=== PATIENT | female | born 1980 | race American Indian/Alaskan Native ===

== ENCOUNTER 2017-09-28 22:31 | Emergency (ER) | payer OTHER ==
[2017-09-28 23:09] VITALS: BP 132/64
[2017-09-28] MEDS ORDERED: TYLENOL ONE (23:14)
--- NOTE | 2017-09-29 00:48 | XRay Report ---
FINAL REPORT EXAM: XR FINGER(S) 2+V LT HISTORY: left middle finger swelling TECHNIQUE: Three views of the left middle finger were submitted. FINDINGS: There is an acute obliquely oriented nondisplaced fracture of the distal diaphysis and metaphysis of the middle phalanx. The fracture line does not extend to the articular surface. There are no additional fractures. There is soft tissue swelling adjacent to the fracture site. IMPRESSION: Acute nondisplaced obliquely oriented fracture of the distal end of the middle phalanx of the middle finger as described.
--- NOTE | 2017-09-29 02:57 | Emergency Department Report ---
Upper Extremity - HPI Chief Complaint: Extremity Injury, Upper Stated Complaint: PAIN IN LT 3RD DIGIT Time Seen by Provider: 09/29/17 01:41 Upper Extremity: Left Middle Finger (injury, swelling and pain.) Occurred When: Today Mechanism: Crush Severity: severe (pain is 10/10) Symptoms: Yes Pain with Movement (left middle finger), Yes Limited Range of Movement (left middle finger), Yes Swelling (left middle finger), No Deformity, No Numbness, No Weakness, No Bruising/Ecchymosis, No Laceration or Abrasion Other History: Patient here presented with injury to her left middle finger and report that she squashed her middle finger in the door. She reports pain and swelling to left middle finger and more painful with movement better rest. She did not take any medication for pain she came to the emergency room. Denies any radiation of pain and reports that pain is throbbing and it is 10/10. Pain is worse with movement better with rest ED Review of Systems ROS: Stated complaint: PAIN IN LT 3RD DIGIT Other details as noted in HPI Comment: All other systems reviewed and negative Constitutional: no symptoms reported Respiratory: no symptoms reported Cardiovascular: denies: chest pain, palpitations, edema, syncope Gastrointestinal: denies: abdominal pain, nausea, vomiting Musculoskeletal: joint swelling, arthralgia. denies: back pain, myalgia Skin: denies: rash Neurological: denies: headache, weakness, numbness, paresthesias, confusion, abnormal gait, vertigo ED Past Medical Hx - Past Medical History Previous Medical History?: Yes Hx Headaches / Migraines: Yes Additional medical history: heart murmur - Surgical History Past Surgical History?: Yes Additional Surgical History: . tubal ligation - Family History Family history: no significant - Social History Smoking Status: Current Every Day Smoker Substance Use Type: Alcohol, Marijuana - Medications Home Medications: Home Medications Medication Instructions Recorded Confirmed Last Taken Type Sulfamethoxazole/Trimethoprim 1 each PO BID #14 tablet 12/17/15 Unknown Rx [Bactrim DS TAB] traMADol [Ultram 50 MG tab] 50 mg PO Q6HR PRN #15 tablet 12/17/15 Unknown Rx Ibuprofen [Motrin] 600 mg PO Q8H PRN 5 Days #15 tablet 09/29/17 Unknown Rx Upper Extremity Exam - Exam General: Vital signs noted. No distress. Alert and acting appropriately. This is a 29-year-old female well-nourished well-developed in no acute distress. Head and Torso: No HEENT Abnormality (normal exam), No Neck Tenderness (normal exam), No Chest/Lungs Abnormality (normal exam), No Abdominal Tenderness ( normal exam), No Back Tenderness (normal exam) Shoulder Exam: Yes Normal Range of Motion in Shoulder, No Shoulder Tenderness, No Clavicle Tenderness, No Shoulder Deformity, No AC Joint Tenderness Arm Exam: No Arm/Humerus Tenderness, No Arm Deformity Elbow: Yes Normal Range of Motion in Elbow, No Elbow Tenderness, No Elbow Deformity Forearm: No Forearm Tenderness, No Forearm Deformity, No Pain with Pronation, No Pain with Supination Wrist: Yes Wrist Tenderness, Yes Normal ROM in Wrist, No Wrist Deformity, No Snuffbox Tenderness, No Pain with Axial Thumb Compression Hand: Yes Digit Tenderness (left middle finger at mid phalanx), Yes Normal ROM in Digit(s) (left middle finger at mid phalanx), No Hand Tenderness, No Hand Deformity, No Digit(s) Deformity, No Tendon Dysfunction CMS Exam: Yes Broken Skin, Yes Normal Distal Pulses, Yes Normal Capillary Refill , Yes Normal Distal Sensation ED Course Vital Signs 09/28/17 23:03 Temperature 98.4 F Pulse Rate 71 Respiratory 16 Rate Blood Pressure 132/64 O2 Sat by Pulse 99 Oximetry Vital Signs 09/28/17 09/29/17 23:03 03:22 Temperature 98.4 F Pulse Rate 71 Respiratory 16 18 Rate Blood Pressure 132/64 O2 Sat by Pulse 99 Oximetry - Reevaluation(s) Reevaluation #1: 09/29/17 04:42 Patient given Belen 5/325 2 tablets in the emergency room for pain. Patient with nondisplaced fracture to the distal and of the middle phalanx of the middle finger. This was communicated to patient's .see procedure note for splint details - Orthopedic Splinting/Casting Injury #1 Side: left Upper Extremity Injury Location: finger Upper Extremity Immobilizer: aluminum form splint Additional Comments: Patient with good neurovascular check status post splint placement. ED Medical Decision Making - Radiology Data Radiology results: report reviewed X-ray of left middle finger reveal acute nondisplaced obliquely oriented fracture of the distal end of the middle phalanx of the middle finger. - Medical Decision Making ED course: Patient here report that she crushed her finger in the door 30 minutes prior to coming to the emergency room. Physical findings for painful, swelling in and tender to palpate to left middle finger at mid phalanx. Patient has pain with movement. No bony deformity noted but obvious soft tissue swelling. X-ray confirmed that patient has nondisplaced fracture to her left middle finger at mid phalanx. Discussed patient and I told her she will need to follow up with orthopedic doctor for further evaluation and treatment and that she will need to keep metal splint on until she is seen by orthopedic doctor. Patient was given Belen 5/325 mg 2 tablets in the emergency room which relieved her pain. Patient with good neurovascular checked after splint placement and a radial and ulnar pulses at 2+ and bounding. Patient stable discharged from the emergency room in stable condition with prescription for Motrin and instructions in Rice therapy. Critical care attestation.: If time is entered above; I have spent that time in minutes in the direct care of this critically ill patient, excluding procedure time. ED Disposition Clinical Impression: Pain of left middle finger Fracture of middle phalanx of middle finger Qualifiers: Encounter type: initial encounter Fracture type: closed Fracture alignment: nondisplaced Laterality: left Qualified Code(s): S62.653A - Nondisplaced fracture of middle phalanx of left middle finger, initial encounter for closed fracture Injury of left middle finger Qualifiers: Encounter type: initial encounter Qualified Code(s): S69.92XA - Unspecified injury of left wrist, hand and finger(s), initial encounter Disposition: - TO HOME OR SELFCARE Is pt being admited?: No Does the pt Need Aspirin: No Condition: Stable Instructions: Finger Fracture (ED), Arthralgia (ED), RICE Therapy (ED), Splint Care (ED) Additional Instructions: Please follow up with orthopedic doctor in 3-5 days for evaluation of nondisplaced fracture of your left middle finger. Keep splint on until seen by orthopedic doctor Take Motrin for pain as prescribed Prescriptions: Ibuprofen [Motrin] 600 mg PO Q8H PRN 5 Days #15 tablet PRN Reason: Pain Referrals: PRIMARY CARE, [Primary Care Provider] - 3-5 Days ERIN PAGE MD [Staff Physician] - 3-5 Days Forms: Accompanied Note, Work/School Release Form(ED)
[2017-09-29] MEDS ORDERED: NORCO 5/325 PO ONE (03:00)
== END 2017-09-29 04:30 | disposition home or self-care (01) ==
LOC: ED 22:31
DX: S62.623A Displaced fracture of middle phalanx of left middle finger, initial encounter for closed fracture (principal); F17.200 Nicotine dependence, unspecified, uncomplicated; F12.10 Cannabis abuse, uncomplicated; G43.909 Migraine, unspecified, not intractable, without status migrainosus; W23.0XXA Caught, crushed, jammed, or pinched between moving objects, initial encounter; Y93.89 Activity, other specified; Y92.89 Other specified places as the place of occurrence of the external cause; Y99.8 Other external cause status
CPT/HCPCS: 99283

== ENCOUNTER 2018-02-27 08:56 | Emergency (ER) | payer SELFPAY ==
[2018-02-27 09:02] VITALS: BP 141/82
[2018-02-27] MEDS ORDERED: ZOFRAN ODT PO ONE (09:45)
[2018-02-27] MEDS ORDERED: TORADOL IM ONE (09:45)
--- NOTE | 2018-02-27 09:45 | Emergency Department Report ---
ED Headache HPI - General Chief Complaint: Headache Stated Complaint: HEADACHE Time Seen by Provider: 02/27/18 09:39 - History of Present Illness Initial Comments: Patient is a 37-year-old female who is presenting with a global headache for the past one day. Patient has history migraine states this headache is consistent with her migraines. There is some mild nausea and photophobia. Patient says normally she takes [id number] meds. She took ibuprofen didn't help this time. Patient denies any head injury fevers chills vomiting abdominal pain or chest pain at this time. Recent Head Trauma: chronic headaches Associated Symptoms: nausea/vomiting. denies: confusion, fatigue, facial pain, fever/chills, flushing, loss of consciousness, nasal congestion, nasal drainage , numbness in legs/feet, rash, seizures, sinus infection, stiff neck, vision changes, weakness Allergies/Adverse Reactions: Allergies No Known Allergies Allergy (Verified 02/27/18 09:00) Home Medications: Ambulatory Orders Sulfamethoxazole/Trimethoprim [Bactrim DS TAB] 1 each PO BID #14 tablet traMADol [Ultram 50 MG tab] 50 mg PO Q6HR PRN #15 tablet 12/17/15 Butalb/Acetamin/Caff 50-325-40 [Fioricet] 1 tab PO Q6HR PRN #15 tab 02/27/18 Ibuprofen [Motrin 600 MG tab] 600 mg PO Q8H PRN 5 Days #30 tablet 02/27/18 ED Review of Systems ROS: Stated complaint: HEADACHE Other details as noted in HPI Comment: All other systems reviewed and negative ED Past Medical Hx - Past Medical History Hx Headaches / Migraines: Yes Additional medical history: heart murmur - Surgical History Additional Surgical History: . tubal ligation - Social History Smoking Status: Current Every Day Smoker Substance Use Type: Alcohol, Marijuana - Medications Home Medications: Home Medications Medication Instructions Recorded Confirmed Last Taken Type Sulfamethoxazole/Trimethoprim 1 each PO BID #14 tablet 12/17/15 Unknown Rx [Bactrim DS TAB] traMADol [Ultram 50 MG tab] 50 mg PO Q6HR PRN #15 tablet 12/17/15 Unknown Rx Butalb/Acetamin/Caff 50-325-40 1 tab PO Q6HR PRN #15 tab 02/27/18 Unknown Rx [Fioricet] Ibuprofen [Motrin 600 MG tab] 600 mg PO Q8H PRN 5 Days #30 tablet 02/27/18 Unknown Rx ED Physical Exam - General Limitations: No Limitations General appearance: alert, in no apparent distress - Head Head exam: Present: atraumatic, normocephalic - Eye Eye exam: Present: normal appearance - ENT ENT exam: Present: mucous membranes moist - Neck Neck exam: Present: normal inspection - Respiratory Respiratory exam: Present: normal lung sounds bilaterally. Absent: respiratory distress - Cardiovascular Cardiovascular Exam: Present: regular rate, normal rhythm. Absent: systolic murmur, diastolic murmur, rubs, gallop - GI/Abdominal GI/Abdominal exam: Present: soft, normal bowel sounds - Extremities Exam Extremities exam: Present: normal inspection - Back Exam Back exam: Present: normal inspection - Neurological Exam Neurological exam: Present: alert, oriented X3 - Psychiatric Psychiatric exam: Present: normal affect, normal mood - Skin Skin exam: Present: warm, dry, intact, normal color. Absent: rash ED Course Vital Signs 02/27/18 09:00 Temperature 98.9 F Pulse Rate 92 H Respiratory 18 Rate Blood Pressure 141/82 O2 Sat by Pulse 100 Oximetry ED Medical Decision Making - Medical Decision Making Patient was given a Zofran ODT and Toradol shot IM he'll be discharged home with Fioricet. Critical care attestation.: If time is entered above; I have spent that time in minutes in the direct care of this critically ill patient, excluding procedure time. ED Disposition Clinical Impression: Migraine Qualifiers: Migraine type: unspecified Status migrainosus presence: without status migrainosus Intractability: not intractable Qualified Code(s): G43.909 - Migraine, unspecified, not intractable, without status migrainosus Disposition: DC-01 TO HOME OR SELFCARE Is pt being admited?: No Does the pt Need Aspirin: No Condition: Stable Instructions: Migraine Headache (ED) Prescriptions: Butalb/Acetamin/Caff 50-325-40 [Fioricet] 1 tab PO Q6HR PRN #15 tab PRN Reason: Headache Ibuprofen [Motrin 600 MG tab] 600 mg PO Q8H PRN 5 Days #30 tablet PRN Reason: Pain Referrals: KASHMIR RUSH MD [Staff Physician] - 3-5 Days
== END 2018-02-27 09:57 | disposition home or self-care (01) ==
LOC: ED 08:56
DX: G43.909 Migraine, unspecified, not intractable, without status migrainosus (principal); F17.200 Nicotine dependence, unspecified, uncomplicated; F12.10 Cannabis abuse, uncomplicated
CPT/HCPCS: 96372; 99282; J1885; Q0162

== ENCOUNTER 2018-08-01 09:06 | Emergency (ER) | payer SELFPAY ==
[2018-08-01] MEDS ORDERED: XYLOCAINE 1% MPF 5 mL INFILTRATI ONE (10:08)
--- NOTE | 2018-08-01 10:09 | Emergency Department Report ---
Blank Doc - Documentation Documentation: Patient is a 38-year-old female who is unable to remove the piercing from her upper lip. Patient states she hit her lip several days ago and a small scab she is able to remove the jewelry but not the part of the piercing that is inserted into the scan. The patient denies any redness pus drainage or swelling. The patient be moved to a treatment room, use lidocaine and a scalpel to remove the foreign body from the skin
--- NOTE | 2018-08-01 10:52 | Emergency Department Report ---
- General Chief complaint: Skin/Abscess/Foreign Body Stated complaint: THERMAL IN LIP Time Seen by Provider: 08/01/18 09:58 Source: patient Mode of arrival: Ambulatory Limitations: No Limitations - History of Present Illness Initial comments: This is a 38-year-old female who presents with a piercing lodged in her upper lip. Patient states she hit her lip 2 weeks ago and able to remove one side of jewelry. 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 A small scab has formed over jewelry causing problem for removal. Patient reports pain with touch. The patient denies redness, pus, drainage or swelling. MD complaint: foreign body (upper lip) Onset/Timin -: week(s) Tetanus Up to Date: yes Severity: mild Severity scale (0 -10): 3 Quality: aching Consistency: intermittent Improves with: none Worsens with: palpation, movement Context: none Associated symptoms: denies other symptoms Treatments Prior to Arrival: none - Related Data Previous Rx's Medication Instructions Recorded Last Taken Type Sulfamethoxazole/Trimethoprim 1 each PO BID #14 tablet 12/17/15 Unknown Rx [Bactrim DS TAB] traMADol [Ultram 50 MG tab] 50 mg PO Q6HR PRN #15 tablet 12/17/15 Unknown Rx Butalb/Acetamin/Caff 50-325-40 1 tab PO Q6HR PRN #15 tab 02/27/18 Unknown Rx [Fioricet] Ibuprofen [Motrin 600 MG tab] 600 mg PO Q8H PRN 5 Days #30 tablet 02/27/18 Unknown Rx Neomycin/Bacitracin/Polymyxinb 14 gm TP BID 7 Days #1 oint...g. 08/01/18 Unknown Rx [Triple Antibiotic Ointment] Allergies Allergy/AdvReac Type Severity Reaction Status Date / Time No Known Allergies Allergy Verified 02/27/18 09:00 Abscess Boil HPI - HPI Chief Complaint: Skin/Abscess/Foreign Body Stated Complaint: THERMAL IN LIP Time Seen by Provider: 08/01/18 09:58 Home Medications: Previous Rx's Medication Instructions Recorded Last Taken Type Sulfamethoxazole/Trimethoprim 1 each PO BID #14 tablet 12/17/15 Unknown Rx [Bactrim DS TAB] traMADol [Ultram 50 MG tab] 50 mg PO Q6HR PRN #15 tablet 12/17/15 Unknown Rx Butalb/Acetamin/Caff 50-325-40 1 tab PO Q6HR PRN #15 tab 02/27/18 Unknown Rx [Fioricet] Ibuprofen [Motrin 600 MG tab] 600 mg PO Q8H PRN 5 Days #30 tablet 02/27/18 Unknown Rx Neomycin/Bacitracin/Polymyxinb 14 gm TP BID 7 Days #1 oint...g. 08/01/18 Unknown Rx [Triple Antibiotic Ointment] Allergies/Adverse Reactions: Allergies Allergy/AdvReac Type Severity Reaction Status Date / Time No Known Allergies Allergy Verified 02/27/18 09:00 ED Review of Systems ROS: Stated complaint: THERMAL IN LIP Other details as noted in HPI Constitutional: denies: chills, fever Respiratory: denies: cough, shortness of breath, wheezing Cardiovascular: denies: chest pain, palpitations Gastrointestinal: denies: abdominal pain, nausea, diarrhea Musculoskeletal: denies: back pain, joint swelling, arthralgia Skin: other (jewerly lodged in the upper lid). denies: rash, lesions Neurological: denies: headache, weakness, paresthesias Psychiatric: denies: anxiety, depression ED Past Medical Hx - Past Medical History Previous Medical History?: Yes Hx Headaches / Migraines: Yes Additional medical history: heart murmur - Surgical History Past Surgical History?: Yes Additional Surgical History: . tubal ligation - Social History Smoking Status: Current Every Day Smoker Substance Use Type: Alcohol, Marijuana - Medications Home Medications: Home Medications Medication Instructions Recorded Confirmed Last Taken Type Sulfamethoxazole/Trimethoprim 1 each PO BID #14 tablet 12/17/15 Unknown Rx [Bactrim DS TAB] traMADol [Ultram 50 MG tab] 50 mg PO Q6HR PRN #15 tablet 12/17/15 Unknown Rx Butalb/Acetamin/Caff 50-325-40 1 tab PO Q6HR PRN #15 tab 02/27/18 Unknown Rx [Fioricet] Ibuprofen [Motrin 600 MG tab] 600 mg PO Q8H PRN 5 Days #30 tablet 02/27/18 Unknown Rx Neomycin/Bacitracin/Polymyxinb 14 gm TP BID 7 Days #1 oint...g. 08/01/18 Unknown Rx [Triple Antibiotic Ointment] ED Physical Exam - General Limitations: No Limitations General appearance: alert, in no apparent distress - Respiratory Respiratory exam: Present: normal lung sounds bilaterally. Absent: respiratory distress - Cardiovascular Cardiovascular Exam: Present: regular rate, normal rhythm. Absent: systolic murmur, diastolic murmur, rubs, gallop - GI/Abdominal GI/Abdominal exam: Present: soft, normal bowel sounds - Neurological Exam Neurological exam: Present: alert, oriented X3 - Psychiatric Psychiatric exam: Present: normal affect, normal mood - Skin Skin exam: Present: warm, dry, intact, normal color, other (foreign object, piercing jewelry, launched in phitral ridge, scab, tenderness, no drainage). Absent: rash ED Course Vital Signs 08/01/18 08/01/18 09:14 11:12 Temperature 98.1 F 98.5 F Pulse Rate 75 68 Respiratory 16 18 Rate Blood Pressure 138/79 Blood Pressure 128/72 [Left] O2 Sat by Pulse 100 98 Oximetry - Foreign Body Removal Nose Location: nostril (R) Suspected Foreign Body: organic material Patient Preparation: topical anesthetic (1% lidocaine) Foreign Body Removal Technique: other (forceps) Patient Tolerated Procedure: well Complications: none ED Medical Decision Making - Medical Decision Making Patient was examined by me. Vitals are normal and patient is in no acute distress. Foreign object removed successfully with scapula and forceps. Start triple antibiotic ointment for prophylactic treatment. Plan discussed with patient to discharge home and treat outpatient. Patient discharged home in stable condition. Follow up with PCP in 2-3 days. Critical care attestation.: If time is entered above; I have spent that time in minutes in the direct care of this critically ill patient, excluding procedure time. ED Disposition Clinical Impression: Foreign body in lip Qualifiers: Encounter type: initial encounter Qualified Code(s): S00.551A - Superficial foreign body of lip, initial encounter Disposition: DC- TO HOME OR SELFCARE Is pt being admited?: No Does the pt Need Aspirin: No Condition: Stable Instructions: Soft Tissue Foreign Body (ED) Additional Instructions: Apply triple antibiotic ointment to wound twice a day for 7 days. Follow-up with primary care provider in 2-3 days wound is not healing is discussed. Prescriptions: Neomycin/Bacitracin/Polymyxinb [Triple Antibiotic Ointment] 14 gm TP BID 7 Days #1 oint...g. Referrals: [facility] [Outside] - 3-5 Days [facility] [Outside] - 3-5 Days [facility] [Outside] - 3-5 Days Forms: Work/School Release Form(ED) Time of Disposition: 11:03 Print Language: TURKMEN
[2018-08-01 11:17] VITALS: BP 128/72
== END 2018-08-01 11:12 | disposition home or self-care (01) ==
LOC: ED 09:06
DX: S00.551A Superficial foreign body of lip, initial encounter (principal); G43.909 Migraine, unspecified, not intractable, without status migrainosus; F17.200 Nicotine dependence, unspecified, uncomplicated; F12.90 Cannabis use, unspecified, uncomplicated; Z98.51 Tubal ligation status; W45.8XXA Other foreign body or object entering through skin, initial encounter; Y93.89 Activity, other specified; Y92.89 Other specified places as the place of occurrence of the external cause; Y99.8 Other external cause status
CPT/HCPCS: 99283

== ENCOUNTER 2021-06-14 12:12 | Emergency (ER) | payer SELFPAY ==
[2021-06-14 14:11] VITALS: BP 136/63
[2021-06-14] MEDS ORDERED: TETANUS,DIPH,PERTUSS(ACELL) VACCINE 0.5 ML SYRINGE IM ONE ×2 (14:18→21:00)
--- NOTE | 2021-06-14 15:06 | Emergency Department Report ---
Blank Doc - Documentation Documentation: 41-year-old female that presents with right fingers lac s/p blade knife cut at work. Denies being UTD with tetanus. 1- This is a initial triage assessment/medical screening only. Full assessment and work-up will be completed once the patient is in proper hospital gown, ED bed and in a private room setting. This initial assessment/diagnostic orders/clinical plan/ treatment(s) is/are subject to change based on pt's health status, clinical progression and re-assessment by fellow clinical providers in the ED. Further treatment and workup at subsequent clinical providers discretion. Patient/guardians urged not to elope from ED as their condition may be serious if not clinically assessed and managed. 2-tetanus 3-imaging studies
--- NOTE | 2021-06-14 15:20 | XRay Report ---
XR hand 3+V RT INDICATION: finger lac. COMPARISON: None available. FINDINGS: There is material over the distal index finger and long fingers. There is a mildly displaced fracture of the base of the tuft of the index finger distal phalanx with volar displacement. Signer Name: Froylan Gillis MD Signed: 06/14/2021 3:15 PM Workstation Name: [id number]
[2021-06-14] MEDS ORDERED: ceFAZolin 1 GM VIAL IM STA (20:26)
[2021-06-14] MEDS ORDERED: BUPIVACAINE/PF (0.5%) 5 MG/1 ML 10 ML VIAL INFILTRATI NR (21:00)
[2021-06-14] MEDS ORDERED: oxyCODONE /ACETAMINOPHEN 5-325MG TAB PO ONE (22:58)
--- NOTE | 2021-06-14 23:13 | Emergency Department Report ---
ED Upper Extremity Inj HPI - General Chief Complaint: Laceration/Recheck/Suture Stated Complaint: LNI Time Seen by Provider: 06/14/21 14:18 Source: patient Mode of arrival: Ambulatory Limitations: No Limitations - History of Present Illness Initial Comments: 41-year-old female was at work using a few triceps to call [id number] and when turned off the blade she attempted to retrieve the food with the blade had not yet finished chopping in a downward fashion and resulting and striking her left index and finger and third third digit. She reports pain and bleeding presents emergency department seeking treatment of her laceration and traumatic injury MD Complaint: Injury to:: left, finger -: Gradual Other Extremity Injury: Fingers: Left Other Injuries: none Handedness: left Place: home Improves With: none Worsens With: none Context: laceration Associated Symptoms: denies: nausea/vomiting, heard/felt popping sensat Treatments Prior to Arrival: bandage - Related Data Previous Rx's Medication Instructions Recorded Last Taken Type Sulfamethoxazole/Trimethoprim 1 each PO BID #14 tablet 12/17/15 Unknown Rx [Bactrim DS TAB] traMADoL [Ultram 50 MG tab] 50 mg PO Q6HR PRN #15 tablet 12/17/15 Unknown Rx Butalb/Acetamin/Caff 50-325-40 1 tab PO Q6HR PRN #15 tab 02/27/18 Unknown Rx [Fioricet] Ibuprofen [Motrin 600 MG tab] 600 mg PO Q8H PRN 5 Days #30 tablet 02/27/18 Unknown Rx Neomycin/Bacitracin/Polymyxinb 14 gm TP BID 7 Days #1 oint...g. 08/01/18 Unknown Rx [Triple Antibiotic Ointment] Acetaminophen/Codeine [Tylenol 1 tab PO Q6H PRN #14 tab 06/14/21 Unknown Rx /Codeine # 3 tab] cephALEXin [Keflex] 500 mg PO Q8HR #30 cap 06/14/21 Unknown Rx Allergies Allergy/AdvReac Type Severity Reaction Status Date / Time No Known Allergies Allergy Verified 02/27/18 09:00 ED Review of Systems ROS: Stated complaint: LNI Other details as noted in HPI Comment: All other systems reviewed and negative ED Past Medical Hx - Past Medical History Previous Medical History?: Yes Hx Headaches / Migraines: Yes Additional medical history: heart murmur - Surgical History Past Surgical History?: Yes Additional Surgical History: . tubal ligation - Social History Smoking Status: Current Every Day Smoker Substance Use Type: Alcohol, Marijuana - Medications Home Medications: Home Medications Medication Instructions Recorded Confirmed Last Taken Type Sulfamethoxazole/Trimethoprim 1 each PO BID #14 tablet 12/17/15 Unknown Rx [Bactrim DS TAB] traMADoL [Ultram 50 MG tab] 50 mg PO Q6HR PRN #15 tablet 12/17/15 Unknown Rx Butalb/Acetamin/Caff 50-325-40 1 tab PO Q6HR PRN #15 tab 02/27/18 Unknown Rx [Fioricet] Ibuprofen [Motrin 600 MG tab] 600 mg PO Q8H PRN 5 Days #30 tablet 02/27/18 Unknown Rx Neomycin/Bacitracin/Polymyxinb 14 gm TP BID 7 Days #1 oint...g. 08/01/18 Unk nown Rx [Triple Antibiotic Ointment] Acetaminophen/Codeine [Tylenol 1 tab PO Q6H PRN #14 tab 06/14/21 Unknown Rx /Codeine # 3 tab] cephALEXin [Keflex] 500 mg PO Q8HR #30 cap 06/14/21 Unknown Rx ED Physical Exam - General Limitations: No Limitations General appearance: alert, in no apparent distress - Head Head exam: Present: atraumatic, normocephalic - Eye Eye exam: Present: normal appearance, PERRL, EOMI Pupils: Present: normal accommodation - ENT ENT exam: Present: mucous membranes moist - Neck Neck exam: Present: normal inspection - Respiratory Respiratory exam: Present: normal lung sounds bilaterally. Absent: respiratory distress - Cardiovascular Cardiovascular Exam: Present: regular rate, normal rhythm. Absent: systolic murmur, diastolic murmur, rubs, gallop - GI/Abdominal GI/Abdominal exam: Present: soft, normal bowel sounds - Extremities Exam Extremities exam: Present: normal inspection, tenderness - Expanded Upper Extremity Exam Left Shoulder Exam: Present: normal inspection, full ROM Upper Arm exam: Present: normal inspection, full ROM Elbow exam: Present: normal inspection Forearm Wrist exam: Present: normal inspection, full ROM Hand Wrist exam: Present: laceration Hand L/R Back: 1 - Laceration to this site on the index finger is 2 cm with mild involvement of the matrix of the fingernail although the finger nailbed is intact. Capillary refills are on the third digit is 1 cm Vascular: Present: normal capillary refill - Back Exam Back exam: Present: normal inspection - Neurological Exam Neurological exam: Present: alert, oriented X3 - Psychiatric Psychiatric exam: Present: normal affect, normal mood - Skin Skin exam: Present: warm, dry. Absent: intact, normal color, rash ED Course Vital Signs 06/14/21 14:09 Temperature 98.3 F Pulse Rate 74 Respiratory 18 Rate Blood Pressure 136/63 [Right] O2 Sat by Pulse 100 Oximetry - Laceration /Wound Repair Right Finger Wound Location: upper extremity Wound Length (cm): 2 Wound's Depth, Shape: linear Betadine Prep?: Yes Anesthesia: 1% Lidocaine, 0.5% Sensorcaine Wound Debrided: minimal Suture Size/Type: 3:0, proline Number of Sutures: 2 Layer Closure?: No Sterile Dressing Applied?: Yes ED Medical Decision Making - Radiology Data Radiology results: report reviewed [facility] [address] [place] [address] XRay Report Signed Patient: EDISON SANTIZO MR#: [id number] : 1980 Acct:[id number] Age/Sex: 41 / F ADM Date: 06/14/21 Loc: ED Attending Dr: Ordering Physician: SUMEET BEARDEN NP Date of Service: 06/14/21 Procedure(s): XR hand 3+V RT Accession Number(s): [id number] cc: SUMEET BEARDEN NP Fluoro Time In Minutes: XR hand 3+V RT INDICATION: finger lac. COMPARISON: None available. FINDINGS: There is material over the distal index finger and long fingers. There is a mi ldly displaced fracture of the base of the tuft of the index finger distal phalanx with volar displacement. Signer Name: Froylan Gillis MD Signed: 06/14/2021 3:15 PM Workstation Name: [id number] Transcribed By: MARIA DEL ROSARIO Dictated By: Froylan Gillis MD Electronically Authenticated By: Froylan Gillis MD Signed Date/Time: 06/14/211514 DD/ 14 TD/TT: Print Cancel Critical care attestation.: If time is entered above; I have spent that time in minutes in the direct care of this critically ill patient, excluding procedure time. ED Disposition Clinical Impression: Finger laceration with complication, Open fracture of finger of left hand Disposition: DC-01 TO HOME OR SELFCARE Is pt being admited?: No Does the pt Need Aspirin: No Condition: Stable Instructions: Cast or Splint Care, Adult, [id number], Laceration Care, Adult, Sutured Wound Care Prescriptions: cephALEXin [Keflex] 500 mg PO Q8HR #30 cap Acetaminophen/Codeine [Tylenol /Codeine # 3 tab] 1 tab PO Q6H PRN #14 tab PRN Reason: pain Referrals: PRIMARY CAREMD [Primary Care Provider] - 3-5 Days [facility] [Provider Group] - 3-5 Days
== END 2021-06-14 23:30 | disposition home or self-care (01) ==
LOC: ED 12:12
DX: S62.630B Displaced fracture of distal phalanx of right index finger, initial encounter for open fracture (principal); G43.909 Migraine, unspecified, not intractable, without status migrainosus; F12.10 Cannabis abuse, uncomplicated; W45.8XXA Other foreign body or object entering through skin, initial encounter; Y93.89 Activity, other specified; Y92.89 Other specified places as the place of occurrence of the external cause; Y99.8 Other external cause status
CPT/HCPCS: 12001; 73130; 90471; 90715; 96372; 99283; J0690